=== PATIENT | female | born 2000 ===

== ENCOUNTER 2022-04-12 18:11 | Emergency (ER) | payer BC ==
[2022-04-12 19:01] LABS: HEMOGLOBIN 12.2 gm/dl (12.3-15.3); RED BLOOD COUNT 3.6 M/UL (4.00-5.10); WHITE BLOOD COUNT 1.9 K/UL (4.5-11.0)
[2022-04-12 19:21] LABS: BUN/CREATININE RATIO 12 (0-10)
[2022-04-12] MEDS ORDERED: MACROBID 100 M100 MG PO (21:56)
[2022-04-12] MEDS ORDERED: ZOFRAN 4 MG TAB4 MG PO (21:58)
[2022-04-12] MEDS ORDERED: OMNICEF 300 MG300 MG PO (22:15)
== END 2022-04-12 22:38 | disposition home or self-care (01) ==
LOC: ER1 18:11
PROVIDERS: Physician Assistant
DX: N39.0 Urinary tract infection, site not specified (principal); K75.4 Autoimmune hepatitis; R79.89 Other specified abnormal findings of blood chemistry; Z88.8 Allergy status to other drugs, medicaments and biological substances; Z51.81 Encounter for therapeutic drug level monitoring
CPT/HCPCS: 76700; 80053; 81001; 84703; 85025; 85610; 99284